=== PATIENT | female | born 1985 | race Caucasian/White ===

== ENCOUNTER 2019-01-31 00:13 | Inpatient (IN) | payer OTHER ==
[~2019-01-31] VITALS: Ht 154.9 cm; Wt 65.8 kg
[2019-01-31] MEDS ORDERED: OBSTETRIX ONE1 EACH PO (15:34)
[2019-01-31] MEDS ORDERED: INTEGRA F CAPS1 EACH PO (15:35)
[2019-01-31] MEDS ORDERED: SOD SULFACET170.3 GM TOP (15:36)
== END 2019-02-04 08:49 | DRG 833 ==
LOC: LDR 00:13 → OB/GYN 00:13
PROVIDERS: ADMIT Obstetrics & Gynecology
PROC: 4A0HXFZ Measurement of Products of Conception, Cardiac Rhythm, External Approach (ICD-10-PCS; principal; 2019-01-31)
DX: O60.02 Preterm labor without delivery, second trimester (principal); Z3A.24 24 weeks gestation of pregnancy

== ENCOUNTER 2019-02-19 11:32 | Outpatient (CLI) | payer OTHER ==
[~2019-02-19 11:32] MED LIST: INTEGRA F CAPS1 EACH PO; OBSTETRIX ONE1 EACH PO; SOD SULFACET170.3 GM TOP
== END 2019-02-19 12:24 | disposition home or self-care (01) ==
LOC: NST 11:32
DX: Z34.83 Encounter for supervision of other normal pregnancy, third trimester (principal)

== ENCOUNTER 2019-04-23 12:26 | Inpatient (IN) | payer OTHER | END 2019-05-13 12:05 | disposition home or self-care (01) | DRG 788 | LOC: OB/GYN 05-02 08:45 → LDR 05-10 08:45 → OB/GYN 05-10 08:45 → EDBD 05-10 08:45 → OB/GYN 05-10 13:00 → O/R 05-10 17:37 → OB/GYN 05-10 19:24 | PROVIDERS: ADMIT Obstetrics & Gynecology Maternal & Fetal Medicine | PROC: 4A1HXCZ Monitoring of Products of Conception, Cardiac Rate, External Approach (ICD-10-PCS; 2019-05-10) | PROC: 10D00Z1 Extraction of Products of Conception, Low, Open Approach (ICD-10-PCS; principal; 2019-05-10 13:00) | DX: O82 Encounter for cesarean delivery without indication (principal); Z3A.37 37 weeks gestation of pregnancy; Z37.0 Single live birth ==